=== PATIENT | female | born 1955 | race Caucasian/White ===

== ENCOUNTER 2017-07-26 08:00 | Outpatient (CLI) | payer OTHER, SELFPAY | END 2017-07-26 08:01 | disposition home or self-care (01) | LOC: BICMAMMO 08:00 | PROVIDERS: ATTEND Family Medicine | DX: Z12.31 Encounter for screening mammogram for malignant neoplasm of breast (principal); Z13.820 Encounter for screening for osteoporosis; Z80.3 Family history of malignant neoplasm of breast | CPT/HCPCS: 77063; 77080 ==

== ENCOUNTER 2018-08-19 11:35 | Outpatient (CLI) | payer MEDICARE, OTHER | END 2018-08-19 11:36 | disposition home or self-care (01) | LOC: BICMAMMO 11:35 | PROVIDERS: ATTEND Family Medicine | DX: Z12.31 Encounter for screening mammogram for malignant neoplasm of breast (principal); Z80.3 Family history of malignant neoplasm of breast | CPT/HCPCS: 77063; 77067 ==

== ENCOUNTER 2019-07-04 17:29 | Observation (INO) | payer MEDICARE, OTHER ==
[2019-07-04 18:20] LABS: #Basophils 0.1 thou/uL (0.0-0.2); #Eosinphils 0.3 thou/uL (0.0-0.7); #Lymphocytes 1.9 thou/uL (1.20-3.40); #Monocytes 0.5 thou/uL (0.11-0.59); #Neutrophils 4.7 thou/uL (1.40-6.50); %Basophils 1.1 % (0.0-1.0); %Eosinophils 3.6 % (0.0-10.0); %Lymphocytes 25.2 % (21.0-51.0); %Monocytes 6.1 % (0.0-10.0); Hemoglobin 13.5 g/dL (12.0-16.0); Mean Corpuscular HGB CONC 33.9 g/dL (32.0-36.0); Mean Corpuscular Hemoglobin 30.8 pg (27.0-31.0); Mean Platelet Volume 7.7 fL (7.4-10.4); Platelet Count 216 thou/uL (130-400); RBC Distribution Width 11.9 % (11.5-14.5); Red Blood Cell (RBC) Count 4.37 mill/uL (4.20-5.40); White Blood Cell (WBC) Count 7.4 thou/uL (4.8-10.8)
[2019-07-04 19:00] LABS: ALT (SGPT) 18 U/L (8-55); AST (SGOT) 16 U/L (5-34); Albumin 4.4 g/dL (3.4-4.8); Alkaline Phosphatase 120 U/L (40-110); Anion Gap 11 mmol/L (10-20); BUN (Urea Nitrogen) 22 mg/dL (9.8-20.1); Bilirubin, Total 0.4 mg/dL (0.2-1.2); Calc. Creatinine Clearance 0 mL/min (70-130); Calcium 9.6 mg/dL (7.8-10.44); Carbon Dioxide 29 mmol/L (23-31); Chloride 104 mmol/L (98-107); Estimated GFR-MDRD 77; Glucose 99 mg/dL (80-115); Potassium 3.2 mmol/L (3.5-5.1); Protein, Total 7.4 g/dL (6.0-8.3); Sodium 141 mmol/L (136-145)
--- NOTE | 2019-07-04 19:08 | RAD ---
EXAM: Chest one view: HISTORY: Palpitations shortness of breath COMPARISON: 08/26/2016 FINDINGS: Heart size: Within normal limits. Lungs: Clear of acute process. No evidence for confluent pneumonia, pleural effusion, acute edema, or pneumothorax, or other signifi cant acute process. IMPRESSION: No significant acute intrathoracic disease. Atherosclerosis of the aorta. No new process from prior study.
[2019-07-04] MEDS ORDERED: Aspirin Chewable 81 MG TAB ONE (19:22)
[2019-07-04] MEDS ORDERED: Potassium Chloride 20 MEQ TAB ONE (20:05)
[2019-07-04] MEDS ORDERED: traMADol HCl 50 MG TAB PO PRN (22:24)
[2019-07-04] MEDS ORDERED: HYDROcodone/Acetaminophen 5/325 mg Tablet PO PRN (22:25)
[2019-07-04] MEDS ORDERED: Acetaminophen 325 MG TAB PO PRN (22:25)
[2019-07-04] MEDS ORDERED: Ondansetron PF 4 MG/2 ML Vial IVP PRN (22:25)
[2019-07-04] MEDS ORDERED: Zolpidem Tartrate 5 MG TAB PO PRN (22:25)
[2019-07-04] MEDS ORDERED: HumaLOG 300 UNITS/3 ML VIAL SC PRN (22:27)
[2019-07-04] MEDS ORDERED: Dextrose 50% Abboject 50 ML SYRINGE SLOW IVP PRN (22:27)
[2019-07-04] MEDS ORDERED: Dextrose 5% in Water 1,000 ML IV PRN (22:27)
[2019-07-04] MEDS ORDERED: Sodium Chloride 0.9% 1,000 ML IV SCH (22:30)
[2019-07-04 23:25] LABS: Troponin I Less than 0.010 ng/mL (< 0.028)
[2019-07-04] MEDS ORDERED: hydrALAZINE 20 MG/ML VIAL SLOW IVP PRN (23:35)
[2019-07-04] MEDS ORDERED: Morphine 2 MG/ML SYRINGE SLOW IVP PRN ×2 (23:35→23:42)
[2019-07-04] MEDS ORDERED: Potassium Chloride 20 MEQ TAB PO SCH (23:59)
[2019-07-05 00:24] VITALS: BMI 39.0
--- NOTE | 2019-07-05 00:31 | HP ---
PRESENTING COMPLAINT: Chest tightness and palpitation. HISTORY OF PRESENT ILLNESS: Ms. Molly Amezcua is a 64-year-old female with history of hypertension, diabetes mellitus, COPD, not on any MDI or home oxygen, who developed sudden onset of palpitation associated with chest tightness earlier today. She states she has been having intermittent symptoms since the last two days, but symptoms today was non-abated, associated with exertional dyspnea. She denies any associated chest pain. She denies any cardiac history. She denies any dizziness, headache, or near syncope. On arrival in the ED, her heart rate was elevated at 114, but in sinus rhythm. She was given IV fluid with improvement in her symptoms with her heart rate of 80s now. She denies any recent medication changes. PAST MEDICAL HISTORY: Significant for hypertension, diabetes mellitus, and COPD. PAST SURGICAL HISTORY: History of left total hip arthroplasty. ALLERGIES: INCLUDES ERYTHROMYCIN, LATEX, PSEUDOEPHEDRINE, WELL TETRACYCLINE. HOME MEDICATIONS: Include; 1. Norvasc. 2. Aspirin. 3. Lipitor. 4. Hydrocodone. 5. Acetaminophen. FAMILY HISTORY: She denies any history of coronary artery disease or lung cancer. REVIEW OF SYSTEMS: All systems review x14 were negative. SOCIAL HISTORY: The patient resides in the community with her family. No history of tobacco, alcohol, or illicit drug use. She is currently . She has extensive history of second-hand smoke exposure. PHYSICAL EXAMINATION: VITAL SIGNS: Current vitals, blood pressure of 136/68, respiratory rate of 22, pulse of 82, O2 saturation is 94% to 95% on room air. GENERAL: Overweight middle-aged female, appearing slightly older than stated age. HEENT: Head is atraumatic, normocephalic. Pupils equal, reactive to light. Anicteric. NECK: No JVD. No carotid bruit. RESPIRATORY: Good air entry. No elicited wheezing. No rhonchi. CARDIAC: S1, S2. Rate and rhythm regular. No reproducible chest wall tenderness. ABDOMEN: Full, soft, nontender. Bowel sounds positive. EXTREMITIES: No calf tenderness. NEURO: The patient is alert and oriented. Cranial nerves 2 through 12 grossly intact. LABORATORY DATA: EKG shows T-wave inversion in aVL only. Otherwise, normal sinus rhythm. WBC 7.4, hemoglobin 13, platelets 16. D-dimer less than 0.27. Potassium 3.2, sodium 141, creatinine 0.7, alkaline phosphatase 120. AST and ALT normal. Glucose 99. BNP of less than 10. Troponin 0.017 with repeat of less than 0.01. TSH is 3.4. IMPRESSION: 1. Presumed chronic obstructive pulmonary disease exacerbation - improving with unclear absence of wheezing. We will continue DuoNeb for now. We will admit to observation status. 2. Palpitations, may be due to anxiety, but we will do serial set of cardiac enzymes given slight T-wave inversion in one lead only. 3. Hypokalemia. We will replete. 4. Hypertension, controlled. Continue home regimen. 5. Deep venous thrombosis prophylaxis, subcutaneous heparin. Total time spent on review of record, discussion with patient, greater than 60 minutes. ADVANCE DIRECTIVES: The patient wishes to be full code. Job ID: [id number]
[2019-07-05] MEDS ORDERED: Atorvastatin Calcium 20 MG TAB PO SCH ×3 (00:45→21:00)
[2019-07-05] MEDS ORDERED: Amlodipine 5 MG TAB PO SCH ×3 (00:45→21:00)
[2019-07-05 05:22] LABS: Anion Gap 12 mmol/L (10-20); BUN (Urea Nitrogen) 16 mg/dL (9.8-20.1); Calc. Creatinine Clearance 134 mL/min (70-130); Calcium 8.7 mg/dL (7.8-10.44); Carbon Dioxide 24 mmol/L (23-31); Chloride 108 mmol/L (98-107); Estimated GFR-MDRD Greater than 90; Glucose 103 mg/dL (80-115); Magnesium 1.9 mg/dL (1.6-2.6); Potassium 4.2 mmol/L (3.5-5.1); Sodium 140 mmol/L (136-145)
[2019-07-05 05:23] LABS: Eosinophils 7 % (0-10); Lymphocytes 39 % (21-51); MDiff Complete? YES; Mean Corpuscular HGB CONC 33.7 g/dL (32.0-36.0); Mean Corpuscular Hemoglobin 30.9 pg (27.0-31.0); Mean Corpuscular Volume 91.7 fL (78.0-98.0); Mean Platelet Volume 7.7 fL (7.4-10.4); Monocytes 3 % (0-10); Neutrophil 51 % (42-75); Platelet Count 216 thou/uL (130-400); Platelet Morphology Comment Appears Adequate; RBC Distribution Width 11.9 % (11.5-14.5); RBC Morphology Normal; Red Blood Cell (RBC) Count 4.21 mill/uL (4.20-5.40); White Blood Cell (WBC) Count 7.3 thou/uL (4.8-10.8)
[2019-07-05 05:25] LABS: Troponin I Less than 0.010 ng/mL (< 0.028)
[2019-07-05] MEDS ORDERED: Hydrochlorothiazide 25 MG TAB PO SCH (09:00)
[2019-07-05] MEDS ORDERED: Losartan 25 MG TAB PO SCH (09:00)
[2019-07-05] MEDS ORDERED: Enoxaparin Sodium 40 MG/0.4 ML SYRINGE SC SCH (09:00)
[2019-07-05] MEDS ORDERED: Famotidine 20 MG TAB PO SCH (09:00)
[2019-07-05] MEDS ORDERED: Aspirin 325 MG TAB PO SCH (09:00)
[2019-07-05 15:52] VITALS: BP 138/71; TEMP 97.7
--- NOTE | 2019-07-06 15:15 | DIS ---
DATE OF ADMISSION: 07/05/2019 DATE OF DISCHARGE: 07/05/2019 DISCHARGE DIAGNOSES: 1. Palpitation. 2. Shortness of breath, presumed to be related to mild underlying chronic obstructive pulmonary disease. 3. Hypokalemia. 4. History of hypertension. 5. Chest tightness. HISTORY OF PRESENT ILLNESS: This patient is a 64-year-old female with history of hypertension, diabetes, and COPD. The patient reported that she had been on inhalers in the past, but did not have any and therefore had not been using them as she had in the past. She reported some intermittent symptoms for few days prior with some dyspnea on exertion. She had no specific complaint of chest pain, but did report she simply felt tight with her breathing. She ultimately presented to the emergency department, where she was slightly tachycardic at 114, but otherwise exam was largely unremarkable. D-dimer was actually low. Troponin was initially 0.017 with subsequent of 0.01, potassium was slightly low at 3.2. HOSPITAL COURSE: The patient was placed on observation. Her potassium was repleted. She was given nebulizer treatments and maintained on telemetry and had serial cardiac isoenzymes which were negative. The patient remained completely asymptomatic throughout her hospitalization. She was able to get up and ambulate effectively in the hallways with no shortness of breath or related symptoms. Had a long discussion with the patient regarding potential causes and we agreed that the patient was appropriate for discharge to home and consideration for outpatient followup with her PCP for the possibility of cardiac stress testing at some point, but she also needed formal pulmonary function testing as well. She did not have significant wheezing throughout her hospitalization. PHYSICAL EXAMINATION: VITAL SIGNS: On the day of discharge, temperature is 97.7, pulse 98, respirations 16, O2 saturation 94% on room air, BP was 138/71. GENERAL: She was awake and alert. HEART: Regular rate and rhythm. LUNGS: Clear bilaterally. ABDOMEN: Soft, nontender. EXTREMITIES: No edema. DISPOSITION: The patient will be discharged to home. ACTIVITY: As tolerated. DIET: She will remain on a heart healthy diabetic diet. She will have albuterol inhaler two puffs q.4 hours p.r.n. She will continue with her other usual home medications unchanged. FOLLOWUP: She will follow up with Dr. Sregio Dowling and she can return to the hospital anytime she has the need to do so. Job ID: [id number]
== END 2019-07-05 17:28 | disposition home or self-care (01) ==
LOC: ERS 17:29 → 2SW 07-05 00:10
PROVIDERS: ADMIT Internal Medicine; ATTEND Internal Medicine
DX: R06.02 Shortness of breath (principal); R00.2 Palpitations; R07.89 Other chest pain; J44.9 Chronic obstructive pulmonary disease, unspecified; E87.6 Hypokalemia; I10 Essential (primary) hypertension; E11.9 Type 2 diabetes mellitus without complications; Z88.1 Allergy status to other antibiotic agents; Z91.040 Latex allergy status; Z79.82 Long term (current) use of aspirin; Z79.899 Other long term (current) drug therapy
CPT/HCPCS: 71045; 80048; 82962; 83735; 83880; 84484 ×2; 85007; 85027; 85379; 93005; 94640 ×2; 96360; 96361; 96372; 99285; G0378 ×2; 36415; 36416; 80053; 84443; 85025; J1650; J7620

== ENCOUNTER 2019-08-14 13:18 | Outpatient (CLI) | payer MEDICARE, OTHER | END 2019-08-14 13:19 | disposition home or self-care (01) | PROVIDERS: ATTEND Family Medicine | DX: Z13.6 Encounter for screening for cardiovascular disorders (principal); J44.9 Chronic obstructive pulmonary disease, unspecified; R06.9 Unspecified abnormalities of breathing | CPT/HCPCS: 93017 ==

== ENCOUNTER 2019-08-24 09:57 | Outpatient (CLI) | payer MEDICARE, OTHER ==
--- NOTE | 2019-08-24 11:19 | BD ---
BONE DENSITOMETRY USING DEXA: Date: 08/24/2019 HISTORY: Postmenopausal screening for osteoporosis. FINDINGS: Lumbar Spine: BMD (g/cm2) L1 1.112 T-Score: 1.1 Z-Score: 2.8 L2 1.224 T-Score: 1.8 Z-Score: 3.6 L3 1.287 T-Score: 1.8 Z-Score: 3.8 L4 1.073 T-Score: 0.1 Z-Score: 2.1 L1-L4 1.175 T-Score: 1.2 Z-Score: 3.0 Femoral Neck: 0.665 T-Score: -1.7 Z-Score: -0.1 Total Femur: 0.947 T-Score: 0.0 Z-Score: 1.3 10 year fracture risk for major osteoporotic fracture is 8.6% and for a hip fracture is 1%. IMPRESSION: Osteopenia. POS: TPC
--- NOTE | 2019-08-24 11:37 | MMO ---
Bilateral MAMMO Bilat Screen [facility]. CLINICAL HISTORY: Patient is 64 years old and is seen for screening. The patient has the following family history of breast cancer: sister. The patient has no personal history of cancer. The patient has a history of left Excisional Biopsy in January, - benign. VIEWS: The views performed were: bilateral craniocaudal with tomosynthesis and bilateral mediolateral oblique with tomosynthesis. FILMS COMPARED: The present examination has been compared to prior imaging studies performed at [facility] on 05/07/2008, 02/22/2015, 07/26/2017 and 08/19/2018. This study has been interpreted with the assistance of computer-aided detection. MAMMOGRAM FINDINGS: There are scattered fibroglandular densities. There are no suspicious masses, suspicious calcifications, or new areas of architectural distortion. IMPRESSION: THERE IS NO MAMMOGRAPHIC EVIDENCE OF MALIGNANCY. A ROUTINE FOLLOW-UP MAMMOGRAM IN 1 YEAR IS RECOMMENDED. THE RESULTS OF THIS EXAM WERE SENT TO THE PATIENT. ACR BI-RADS Category 1 - Negative MAMMOGRAPHY NOTE: 1. A negative mammogram report should not delay a biopsy if a dominant of clinically suspicious mass is present. 2. Approximately 10% to 15% of breast cancers are not detected by mammography. 3. Adenosis and dense breasts may obscure an underlying neoplasm. Reported by: REYNA STOCKTON MD Electonically Signed: [id number]
== END 2019-08-24 09:58 | disposition home or self-care (01) ==
LOC: BICMAMMO 09:57
PROVIDERS: ATTEND Family Medicine
DX: Z12.31 Encounter for screening mammogram for malignant neoplasm of breast (principal); Z13.820 Encounter for screening for osteoporosis; M85.859 Other specified disorders of bone density and structure, unspecified thigh; Z80.3 Family history of malignant neoplasm of breast; Z91.89 Other specified personal risk factors, not elsewhere classified; Z78.0 Asymptomatic menopausal state
CPT/HCPCS: 77063; 77067; 77080

== ENCOUNTER 2020-12-05 09:54 | Outpatient (CLI) | payer MEDICARE, OTHER | END 2020-12-05 09:55 | disposition home or self-care (01) | LOC: BICULT 09:54 | PROVIDERS: ATTEND Physician Assistant | DX: Z12.31 Encounter for screening mammogram for malignant neoplasm of breast (principal); R74.8 Abnormal levels of other serum enzymes; Z91.89 Other specified personal risk factors, not elsewhere classified; Z90.49 Acquired absence of other specified parts of digestive tract | CPT/HCPCS: 77063; 77067; 93975 ==

== ENCOUNTER 2020-12-26 08:18 | Outpatient (CLI) | payer MEDICARE, OTHER ==
[2020-12-26 08:50] LABS: Estimated GFR-MDRD - POC Greater than 90
[2020-12-26] MEDS ORDERED: Iopamidol-370 76% 500 ML 1 ML ONE (14:43)
== END 2020-12-26 08:19 | disposition home or self-care (01) ==
LOC: BICCT 08:18
PROVIDERS: ATTEND Physician Assistant
DX: N13.30 Unspecified hydronephrosis (principal); N28.1 Cyst of kidney, acquired; N20.0 Calculus of kidney
CPT/HCPCS: 74178; 82565; Q9967